=== PATIENT | female | born 1965 | race American Indian/Alaskan Native ===

== ENCOUNTER 2019-01-02 20:42 | Emergency (ER) | payer MEDICAID ==
--- NOTE | 2019-01-02 20:58 | Emergency Department Report ---
Blank Doc - Documentation Documentation: This is a 53-year-old female that presents with left axilla abscess. This initial assessment/diagnostic orders/clinical plan/treatment(s) is/are subject to change based on patient's health status, clinical progression and re- assessment by fellow clinical providers in the ED. Further treatment and workup at subsequent clinical providers discretion. Patient/guardians urged not to elope from the ED as their condition may be serious if not clinically assessed and managed. Initial orders include: 1- Patient sent to [facility] for further evaluation and treatment
[2019-01-02 21:52] LABS: Basophils % (Auto) 0.6 % (0.0-1.8); Eosinophils % (Auto) 0.4 % (0.0-4.3); Hematocrit 38.1 % (30.3-42.9); Hemoglobin 12.8 gm/dl (10.1-14.3); Lymphocytes # (Auto) 2.1 K/mm3 (1.2-5.4); Lymphocytes % (Auto) 48.4 % (13.4-35.0); Mean Corpuscular HGB Conc 34 % (30-34); Mean Corpuscular Volume 87 fl (79-97); Monocytes # (Auto) 0.5 K/mm3 (0.0-0.8); Monocytes % (Auto) 10.7 % (0.0-7.3); Platelet Count 315 K/mm3 (140-440); Red Blood Count 4.36 M/mm3 (3.65-5.03); Red Cell Distribution Width 12.6 % (13.2-15.2)
[2019-01-02 22:07] LABS: Alanine Aminotransferase 23 units/L (7-56); Albumin 3.4 g/dL (3.9-5); BUN/Creatinine Ratio 17; Blood Urea Nitrogen 10 mg/dL (7-17); Calcium 9.4 mg/dL (8.4-10.2); Hemolysis Index 7
[2019-01-02] MEDS ORDERED: CLEOCIN 600 MG/50 mL 600 MG/50 ML BAG IV ONE (22:58)
[2019-01-02] MEDS ORDERED: DILAUDID IV ONE (22:58)
[2019-01-02] MEDS ORDERED: ZOFRAN IV ONE (22:59)
[2019-01-02] MEDS ORDERED: HumuLIN R IV ONE (22:59)
[2019-01-02] MEDS ORDERED: NACL 0.9% 1000 ML 1,000 ML IV ONE (22:59)
[2019-01-02] MEDS ORDERED: XYLOCAINE 2%/EPI 1:100,000 INFILTRATI ONE (23:00)
--- NOTE | 2019-01-02 23:02 | Emergency Department Report ---
- General Chief complaint: Skin/Abscess/Foreign Body Stated complaint: BOIL UNDER LEFT ARM/PAINFUL Time Seen by Provider: 01/02/19 20:58 Source: patient Mode of arrival: Ambulatory Limitations: No Limitations - History of Present Illness Initial comments: 53-year-old female with a past medical history diabetes currently on insulin and pills and hypertension presents to the hospital with complaints of multiple boils in her left axilla 4 days. Positive drainage. No fevers. Tetanus up-to-date within 10 years. No previous history of abscess. Compliant with medications but did not have evening diabetes medication. Today patient started having mid abdominal pain with nausea but no pain at this time. Mild dysuria reported. - Related Data Previous Rx's Medication Instructions Recorded Last Taken Type HYDROcodone/APAP 5-325 [[place] 1 each PO Q6HR PRN #15 tablet 01/03/19 Unknown Rx 5/325] Ibuprofen [Motrin] 800 mg PO Q8HR PRN #30 tablet 01/03/19 Unknown Rx Sulfamethoxazole/Trimethoprim 1 each PO BID #20 tablet 01/03/19 Unknown Rx [Bactrim DS TAB] Allergies Allergy/AdvReac Type Severity Reaction Status Date / Time No Known Allergies Allergy Verified 01/02/19 20:55 Abscess Boil HPI - HPI Chief Complaint: Skin/Abscess/Foreign Body Stated Complaint: BOIL UNDER LEFT ARM/PAINFUL Time Seen by Provider: 01/02/19 20:58 Home Medications: Previous Rx's Medication Instructions Recorded Last Taken Type HYDROcodone/APAP 5-325 [[place] 1 each PO Q6HR PRN #15 tablet 01/03/19 Unknown Rx 5/325] Ibuprofen [Motrin] 800 mg PO Q8HR PRN #30 tablet 01/03/19 Unknown Rx Sulfamethoxazole/Trimethoprim 1 each PO BID #20 tablet 01/03/19 Unknown Rx [Bactrim DS TAB] Allergies/Adverse Reactions: Allergies Allergy/AdvReac Type Severity Reaction Status Date / Time No Known Allergies Allergy Verified 01/02/19 20:55 ED Review of Systems ROS: Stated complaint: BOIL UNDER LEFT ARM/PAINFUL Other details as noted in HPI Comment: All other systems reviewed and negative ED Past Medical Hx - Past Medical History Previous Medical History?: Yes Hx Hypertension: Yes Hx Diabetes: Yes - Surgical History Past Surgical History?: Yes Additional Surgical History: x1 - Social History Smoking Status: Current Every Day Smoker Substance Use Type: None - Medications Home Medications: Home Medications Medication Instructions Recorded Confirmed Last Taken Type HYDROcodone/APAP 5-325 [[place] 1 each PO Q6HR PRN #15 tablet 01/03/19 Unknown Rx 5/325] Ibuprofen [Motrin] 800 mg PO Q8HR PRN #30 tablet 01/03/19 Unknown Rx Sulfamethoxazole/Trimethoprim 1 each PO BID #20 tablet 01/03/19 Unknown Rx [Bactrim DS TAB] ED Physical Exam - General Limitations: No Limitations - Other Other exam information: General: No acute distress Head: Atraumatic normocephalic Eyes: Normal appearance, pupils equal reactive to light, extraocular movements intact ENT: Normal oropharynx Neck: Normal appearance, no C-spine tenderness, no meningismus Chest: Clear to auscultation bilaterally, no wheezes, rales, or crackles Cardiovascular: Regular rate and rhythm Abdomen: Soft, nondistended, suprapubic tenderness, no rebound or guarding, normal bowel sounds Back: Normal inspection, nontender Extremity: Normal inspection, no deformity, full range of motion Neuro: Alert and oriented 3, speech clear, no gross motor or sensory deficit Psychiatric: Normal affect Skin: Left axilla abscess 3. Patient has a superior 3 cm skin ulceration with induration and tenderness. No fluctuance. There are 2 very small indurated lesions which likely represent early abscesses. Patient has 1 larger 1 cm fluctuant abscess that requires incision and drainage. ED Course Vital Signs 01/02/19 01/02/19 01/02/19 20:58 21:38 21:42 Temperature 97.7 F 97.3 F L Pulse Rate 91 H 77 Respiratory 18 16 Rate Blood Pressure 78/54 119/65 Blood Pressure 116/72 [Right] O2 Sat by Pulse 96 98 Oximetry 01/02/19 01/02/19 01/02/19 22:35 23:29 23:45 Temperature 98.4 F Pulse Rate 76 Respiratory 24 16 16 Rate Blood Pressure Blood Pressure 133/80 [Right] O2 Sat by Pulse 97 Oximetry - I & D Left Arm Type of Procedure: Simple Site: left axilla Blade Size: 11 I & D Procedure: betadine prep, sterile drapes applied, sterile dressing applied, gauze wick placed Progress: Wound culture sent ED Medical Decision Making - Lab Data Result diagrams: 01/02/19 21:45 01/02/19 21:45 Lab Results 01/02/19 01/02/19 01/02/19 Range/Units 21:45 21:45 23:27 WBC 4.4 L (4.5-11.0) K/mm3 RBC 4.36 (3.65-5.03) M/mm3 Hgb 12.8 (10.1-14.3) gm/dl Hct 38.1 (30.3-42.9) % MCV 87 (79-97) fl MCH 29 (28-32) pg MCHC 34 (30-34) % RDW 12.6 L (13.2-15.2) % Plt Count 315 (140-440) K/mm3 Lymph % (Auto) 48.4 H (13.4-35.0) % Anderson % (Auto) 10.7 H (0.0-7.3) % Eos % (Auto) 0.4 (0.0-4.3) % Baso % (Auto) 0.6 (0.0-1.8) % Lymph # 2.1 (1.2-5.4) K/mm3 Anderson # 0.5 (0.0-0.8) K/mm3 Eos # 0.0 (0.0-0.4) K/mm3 Baso # 0.0 (0.0-0.1) K/mm3 Seg Neutrophils % 39.9 L (40.0-70.0) % Seg Neutrophils # 1.7 L (1.8-7.7) K/mm3 Sodium 138 (137-145) mmol/L Potassium 3.3 L (3.6-5.0) mmol/L Chloride 101.0 (98-107) mmol/L Carbon Dioxide 25 (22-30) mmol/L Anion Gap 15 mmol/L BUN 10 (7-17) mg/dL Creatinine 0.6 L (0.7-1.2) mg/dL Estimated GFR > 60 ml/min BUN/Creatinine Ratio 17 % Glucose 320 H (65-100) mg/dL POC Glucose 332 H (70-105) Calcium 9.4 (8.4-10.2) mg/dL Total Bilirubin 0.20 (0.1-1.2) mg/dL AST 26 (5-40) units/L ALT 23 (7-56) units/L Alkaline Phosphatase 76 (35-129) units/L Total Protein 6.9 (6.3-8.2) g/dL Albumin 3.4 L (3.9-5) g/dL Albumin/Globulin Ratio 1.0 % Lipase 96 H (13-60) units/L - Medical Decision Making Patient had I&D of abscess. Treated with clindamycin. Tetanus up to date. Pain medicine given prior to I&D. Patient has mild hypokalemia and by mouth potassium Glucose elevated because patient did not take her evening meds dose. Improved with insulin and IV fluids - Differential Diagnosis abscess, DKA, hyperglycemia, hidradenitis Critical Care Time: No Critical care attestation.: If time is entered above; I have spent that time in minutes in the direct care of this critically ill patient, excluding procedure time. ED Disposition Clinical Impression: Abscess of left axilla, Diabetes mellitus with hyperglycemia Disposition: TO HOME OR SELFCARE Is pt being admited?: No Does the pt Need Aspirin: No Condition: Stable Instructions: Diabetes Mellitus Type 2 in Adults (ED), Abscess (ED) Additional Instructions: Take the medications as prescribed. Follow-up with your doctor or with a doctor/clinic provided. Return is symptoms worsen as indicated by the discharge instructions. You may return here in 2 days for packing removal. Prescriptions: Sulfamethoxazole/Trimethoprim [Bactrim DS TAB] 1 each PO BID #20 tablet Ibuprofen [Motrin] 800 mg PO Q8HR PRN #30 tablet PRN Reason: Pain, Moderate (4-6) HYDROcodone/APAP 5-325 [[place] 5/325] 1 each PO Q6HR PRN #15 tablet PRN Reason: Pain Referrals: [facility] [Primary Care Provider] - 2-3 Days [facility] MD [Staff Physician] - 2-3 Days
[2019-01-02] MEDS ORDERED: TORADOL IV ONE (23:43)
[2019-01-02] MEDS ORDERED: TORADOL ONE (23:46)
[2019-01-03] MEDS ORDERED: K-DUR PO ONE (01:01)
[2019-01-03] MEDS ORDERED: ZOFRAN IV ONE (01:02)
[2019-01-03 02:02] VITALS: BP 129/77
== END 2019-01-03 01:35 | disposition home or self-care (01) ==
LOC: ED 20:42
DX: L02.412 Cutaneous abscess of left axilla (principal); E11.65 Type 2 diabetes mellitus with hyperglycemia; I10 Essential (primary) hypertension; F17.200 Nicotine dependence, unspecified, uncomplicated; Z79.1 Long term (current) use of non-steroidal anti-inflammatories (NSAID)
CPT/HCPCS: 10060; 36415; 80053; 82962; 83690; 85025; 87116; 87186; 96365; 96375; 96376; 99284; J1170; J1885; J2405; J7030; J1815

== ENCOUNTER 2019-09-06 17:47 | Emergency (ER) | payer MEDICAID ==
[2019-09-06] MEDS ORDERED: FAMOTIDINE 20 MG/2 ML INJ IV ONE (18:25)
[2019-09-06] MEDS ORDERED: SODIUM CHLORIDE 0.9% 1000 ML 1,000 ML IV ONE (18:25)
[2019-09-06] MEDS ORDERED: INSULIN REGULAR, HUMAN 100 UNITS/1 ML IV ONE (18:25)
[2019-09-06] MEDS ORDERED: KETOROLAC 30 MG/1 ML INJ IV ONE (18:25)
[2019-09-06] MEDS ORDERED: ONDANSETRON 4 MG/2 ML INJ IV ONE (18:25)
--- NOTE | 2019-09-06 18:28 | Emergency Department Report ---
ED Abdominal Pain HPI - General Chief Complaint: Abdominal Pain Stated Complaint: BODY ACHES/HYPERGLYCEMIA Time Seen by Provider: 09/06/19 18:09 Source: patient, EMS Mode of arrival: Stretcher Limitations: No Limitations - History of Present Illness Initial Comments: 54-year-old female the past medical history of diabetes on insulin and metformin, hypertension, schizophrenia, previous delivery and ectopic surgery x2 presents to the hospital complains of 2 weeks of constant generalized abdominal pain with nausea, vomiting, and diarrhea. Pain is worse today and described feeling like a 10/10 cutting pain in her abdomen. Worse in palpation. Patient had 2 episodes of vomiting today and 3 loose stools. She denies fever, hematochezia, hematemesis, melena, sick contacts, recent travel, or recent antibiotic use. She also denies a history of gastroparesis. Patient has been noncompliant with her insulin x2 days because she has not been eating much EMS report glucose of 341 feet. Patient complains of some shortness of breath but denies cough. - Related Data Previous Rx's Medication Instructions Recorded Last Taken Type HYDROcodone/APAP 5-325 [[place] 1 each PO Q6HR PRN #15 tablet 01/03/19 Unknown Rx 5/325] Ibuprofen [Motrin] 800 mg PO Q8HR PRN #30 tablet 01/03/19 Unknown Rx Sulfamethoxazole/Trimethoprim 1 each PO BID #20 tablet 01/03/19 Unknown Rx [Bactrim DS TAB] Ondansetron [Zofran Odt] 4 mg PO Q8HR PRN #20 tab.rapdis 09/06/19 Unknown Rx traMADoL [Ultram 50 MG tab] 50 mg PO Q4HR PRN #10 tablet 09/06/19 Unknown Rx Allergies Allergy/AdvReac Type Severity Reaction Status Date / Time codeine Allergy Vomiting Verified 09/06/19 17:55 morphine Allergy Vomiting Verified 09/06/19 17:55 ED Review of Systems ROS: Stated complaint: BODY ACHES/HYPERGLYCEMIA Other details as noted in HPI Comment: All other systems reviewed and negative ED Past Medical Hx - Past Medical History Previous Medical History?: Yes Hx Hypertension: Yes Hx Diabetes: Yes Hx Psychiatric Treatment: Yes (schizophrenia) - Surgical History Past Surgical History?: Yes Additional Surgical History: x1. ectopic x2 - Social History Smoking Status: Current Every Day Smoker Substance Use Type: None - Medications Home Medications: Home Medications Medication Instructions Recorded Confirmed Last Taken Type HYDROcodone/APAP 5-325 [[place] 1 each PO Q6HR PRN #15 tablet 01/03/19 Unknown Rx 5/325] Ibuprofen [Motrin] 800 mg PO Q8HR PRN #30 tablet 01/03/19 Unknown Rx Sulfamethoxazole/Trimethoprim 1 each PO BID #20 tablet 01/03/19 Unknown Rx [Bactrim DS TAB] Ondansetron [Zofran Odt] 4 mg PO Q8HR PRN #20 tab.rapdis 09/06/19 Unknown Rx traMADoL [Ultram 50 MG tab] 50 mg PO Q4HR PRN #10 tablet 09/06/19 Unknown Rx ED Physical Exam - General Limitations: No Limitations - Other Other exam information: General: No acute distress Head: Atraumatic Eyes: normal appearance ENT: Moist mucous membranes Neck: Normal appearance, no midline tenderness Chest: Clear to auscultation bilaterally CV: Regular rate and rhythm Abdomen: Soft, normal bowel sounds, mild generalized abdominal tenderness nondistended, no rebound or guarding Back: Normal inspection Extremity: Normal inspection, full range of motion Neuro: Alert O x 3, no facial asymmetry, speech clear, no gross motor sensory deficit Psych: Appropriate behavior Skin: No rash ED Course Vital Signs 09/06/19 09/06/19 09/06/19 17:54 18:30 19:28 Temperature 98.7 F 98.5 F Pulse Rate 87 85 72 Respiratory 18 16 18 Rate Blood Pressure 124/71 Blood Pressure 108/65 97/77 [Left] O2 Sat by Pulse 97 98 100 Oximetry ED Medical Decision Making - Lab Data Result diagrams: 09/06/19 18:24 09/06/19 18:24 - Radiology Data Radiology results: report reviewed CT ABDOMEN AND PELVIS WITH CONTRAST INDICATION / CLINICAL INFORMATION: Nausea, vomiting, diarrhea, generalized abdominal pain. TECHNIQUE: Axial CT images were obtained through the abdomen and pelvis after 100 mL Omnipaque [address] scans at this location are performed using CT dose reduction for ALARA by means of automated exposure control. COMPARISON: None available. FINDINGS: LOWER CHEST: No significant abnormality. LIVER: No significant abnormality. BILIARY SYSTEM: Calcified gallstones are present. No additional evidence of acute cholecystitis. PANCREAS: No significant abnormality. SPLEEN: No significant abnormality. ADRENALS: No significant abnormality. KIDNEYS and URETERS: No significant abnormality. STOMACH / BOWEL: No acute inflammatory changes of the stomach or small intestine. No evidence of intestinal obstruction. The appendix is normal. Scattered colonic diverticula. No evidence of diverticulitis. PERITONEUM: No free fluid. No free air. No fluid collection. LYMPH NODES: No adenopathy. VASCULAR STRUCTURES: No significant abnormality. URINARY BLADDER: No significant abnormality. REPRODUCTIVE ORGANS: No significant abnormality. ADDITIONAL FINDINGS: None. SKELETAL SYSTEM: Mild to moderate degenerative changes of the lumbar spine. No acute skeletal abnormality. IMPRESSION: 1. No acute finding. 2. Cholelithiasis without evidence of acute cholecystitis. 3. Mild colonic diverticulosis. CHEST 1 VIEW INDICATION / CLINICAL INFORMATION: Short of breath. COMPARISON: None available. FINDINGS: SUPPORT DEVICES: None. HEART / MEDIASTINUM: No significant abnormality. LUNGS / PLEURA: No significant pulmonary or pleural abnormality. No pneumothorax. IMPRESSION: No acute finding. - Medical Decision Making Patient is feeling better after ED treatment normal saline, Zofran, and Toradol. She wanted to leave the department prior to CT results. I convinced her to stay. She is feeling better without vomiting will be discharged with meds. - Differential Diagnosis Gastroparesis, gastroenteritis, pancreatitis, cholecystitis Critical Care Time: No Critical care attestation.: If time is entered above; I have spent that time in minutes in the direct care of this critically ill patient, excluding procedure time. ED Disposition Clinical Impression: Gastroenteritis, Gallstones, Diverticulosis, Diabetes Disposition: DC-01 TO HOME OR SELFCARE Is pt being admited?: No Does the pt Need Aspirin: No Condition: Stable Instructions: Biliary Colic (ED), Diverticulosis (ED), Diabetes Mellitus Type 2 in Adults (ED), Gastroenteritis (ED) Additional Instructions: Take the medication as prescribed. Follow-up with your doctor or doctor/clinic provided. Return if symptoms worsen as indicated by your discharge instructions. Prescriptions: traMADoL [Ultram 50 MG tab] 50 mg PO Q4HR PRN #10 tablet PRN Reason: Pain Ondansetron [Zofran Odt] 4 mg PO Q8HR PRN #20 tab.rapdis PRN Reason: Nausea And Vomiting Referrals: [facility] [Provider Group] - 3-5 Days Time of Disposition: 20:10
[2019-09-06 18:44] LABS: Basophils % (Auto) 0.5 % (0.0-1.8); Eosinophils % (Auto) 0.7 % (0.0-4.3); Hematocrit 41.2 % (30.3-42.9); Hemoglobin 13.7 gm/dl (10.1-14.3); Lymphocytes # (Auto) 2.2 K/mm3 (1.2-5.4); Lymphocytes % (Auto) 49.9 % (13.4-35.0); Mean Corpuscular HGB Conc 33 % (30-34); Mean Corpuscular Volume 92 fl (79-97); Monocytes # (Auto) 0.3 K/mm3 (0.0-0.8); Monocytes % (Auto) 6.8 % (0.0-7.3); Platelet Count 198 K/mm3 (140-440); Red Blood Count 4.49 M/mm3 (3.65-5.03); Red Cell Distribution Width 12.6 % (13.2-15.2)
[2019-09-06 18:45] LABS: Bilirubin,Urine NEG (Negative); Blood,Urine NEG (Negative); Color,Urine Straw (Yellow); Protein,Urine <15 mg/dL mg/dL (Negative); Urobilinogen,Urine < 2.0 mg/dL (<2.0); WBC,Urine < 1.0 /HPF (0.0-6.0)
[2019-09-06 19:03] LABS: Alanine Aminotransferase 13 units/L (7-56); Albumin 4.3 g/dL (3.9-5); BUN/Creatinine Ratio 19; Blood Urea Nitrogen 13 mg/dL (7-17); Hemolysis Index 23
--- NOTE | 2019-09-06 19:41 | XRay Report ---
CHEST 1 VIEW INDICATION / CLINICAL INFORMATION: Short of breath. COMPARISON: None available. FINDINGS: SUPPORT DEVICES: None. HEART / MEDIASTINUM: No significant abnormality. LUNGS / PLEURA: No significant pulmonary or pleural abnormality. No pneumothorax. IMPRESSION: No acute finding. Signer Name: Wagner Fabian MD Signed: 09/06/2019 7:37 PM Workstation Name: [id number]
--- NOTE | 2019-09-06 19:41 | Cat Scan Report ---
CT ABDOMEN AND PELVIS WITH CONTRAST INDICATION / CLINICAL INFORMATION: Nausea, vomiting, diarrhea, generalized abdominal pain. TECHNIQUE: Axial CT images were obtained through the abdomen and pelvis after 100 mL Omnipaque [address] scans at this location are performed using CT dose reduction for ALARA by means of automated exposure control. COMPARISON: None available. FINDINGS: LOWER CHEST: No significant abnormality. LIVER: No significant abnormality. BILIARY SYSTEM: Calcified gallstones are present. No additional evidence of acute cholecystitis. PANCREAS: No significant abnormality. SPLEEN: No significant abnormality. ADRENALS: No significant abnormality. KIDNEYS and URETERS: No significant abnormality. STOMACH / BOWEL: No acute inflammatory changes of the stomach or small intestine. No evidence of inte stinal obstruction. The appendix is normal. Scattered colonic diverticula. No evidence of diverticuli tis. PERITONEUM: No free fluid. No free air. No fluid collection. LYMPH NODES: No adenopathy. VASCULAR STRUCTURES: No significant abnormality. URINARY BLADDER: No significant abnormality. REPRODUCTIVE ORGANS: No significant abnormality. ADDITIONAL FINDINGS: None. SKELETAL SYSTEM: Mild to moderate degenerative changes of the lumbar spine. No acute skeletal abnorma lity. IMPRESSION: 1. No acute finding. 2. Cholelithiasis without evidence of acute cholecystitis. 3. Mild colonic diverticulosis. Signer Name: Wagner Fabian MD Signed: 09/06/2019 7:36 PM Workstation Name: [id number]
[2019-09-06 20:41] VITALS: BP 106/66
== END 2019-09-06 20:18 | disposition home or self-care (01) ==
LOC: ED 17:47
DX: N20.0 Calculus of kidney (principal); K52.9 Noninfective gastroenteritis and colitis, unspecified; K57.90 Diverticulosis of intestine, part unspecified, without perforation or abscess without bleeding; E11.65 Type 2 diabetes mellitus with hyperglycemia; I10 Essential (primary) hypertension; F17.200 Nicotine dependence, unspecified, uncomplicated; F20.9 Schizophrenia, unspecified; Z79.899 Other long term (current) drug therapy; Z98.890 Other specified postprocedural states; Z88.6 Allergy status to analgesic agent
CPT/HCPCS: 36415; 71045; 74177; 80053; 81001; 82805; 82962; 83690; 85025; 96374; 96375; 99285; J1885; J2405; J7030; Q9967; J1815

== ENCOUNTER 2020-01-12 22:45 | Emergency (ER) | payer MEDICAID ==
[2020-01-13 00:12] VITALS: BP 128/80
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
== END 2020-01-13 04:50 | disposition home or self-care (01) ==
LOC: ED 22:45
DX: R51 Headache (principal); G89.29 Other chronic pain; I10 Essential (primary) hypertension; E11.9 Type 2 diabetes mellitus without complications; F25.0 Schizoaffective disorder, bipolar type; F17.200 Nicotine dependence, unspecified, uncomplicated; Z79.899 Other long term (current) drug therapy; Z88.6 Allergy status to analgesic agent
CPT/HCPCS: 99282

== ENCOUNTER 2020-04-16 15:38 | Emergency (ER) | payer MEDICAID ==
[2020-04-16 20:00] VITALS: BP 140/90
== END 2020-04-16 17:00 | disposition left against medical advice (07) ==
LOC: ED 15:38
DX: R73.9 Hyperglycemia, unspecified (principal); Z53.21 Procedure and treatment not carried out due to patient leaving prior to being seen by health care provider
CPT/HCPCS: 82962

== ENCOUNTER 2020-05-12 17:37 | Emergency (ER) | payer MEDICAID ==
[2020-05-12 18:45] VITALS: BP 115/79
== END 2020-05-12 20:29 | disposition left against medical advice (07) ==
LOC: ED 17:37
DX: M79.672 Pain in left foot (principal); Z53.21 Procedure and treatment not carried out due to patient leaving prior to being seen by health care provider

== ENCOUNTER 2020-05-14 12:20 | Emergency (ER) | payer MEDICAID ==
[2020-05-14 12:32] VITALS: BP 117/71
[2020-05-14 13:09] LABS: Eosinophils # (Auto) 0.1 K/mm3 (0.0-0.4); Eosinophils % (Auto) 1.3 % (0.0-4.3); Hematocrit 41.2 % (30.3-42.9); Hemoglobin 14.2 gm/dl (10.1-14.3); Lymphocytes # (Auto) 1.6 K/mm3 (1.2-5.4); Lymphocytes % (Auto) 35.9 % (13.4-35.0); Mean Corpuscular HGB Conc 34 % (30-34); Mean Corpuscular Volume 89 fl (79-97); Monocytes # (Auto) 0.4 K/mm3 (0.0-0.8); Monocytes % (Auto) 8.2 % (0.0-7.3); Platelet Count 290 K/mm3 (140-440); Red Blood Count 4.62 M/mm3 (3.65-5.03); Red Cell Distribution Width 12.2 % (13.2-15.2)
[2020-05-14 13:10] LABS: Basophils % (Auto) 0.2 % (0.0-1.8)
[2020-05-14 13:19] LABS: Blood Urea Nitrogen 10 mg/dL (7-17); Calcium 9.7 mg/dL (8.4-10.2); Hemolysis Index 5
[2020-05-14 13:21] LABS: BUN/Creatinine Ratio 17
== END 2020-05-14 12:45 | disposition left against medical advice (07) ==
LOC: ED 12:20
DX: Z53.21 Procedure and treatment not carried out due to patient leaving prior to being seen by health care provider (principal)
CPT/HCPCS: 36415; 80048; 80320; 85025; G0480

== ENCOUNTER 2020-05-14 18:16 | Emergency (ER) | payer MEDICAID ==
[2020-05-14 20:29] VITALS: BP 114/88
[2020-05-14] MEDS ORDERED: ACETAMINOPHEN 500 MG TAB PO ONE (23:09)
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
== END 2020-05-15 00:04 | disposition home or self-care (01) ==
LOC: ED 18:16
DX: S86.912A Strain of unspecified muscle(s) and tendon(s) at lower leg level, left leg, initial encounter (principal); L24.9 Irritant contact dermatitis, unspecified cause; I10 Essential (primary) hypertension; E11.9 Type 2 diabetes mellitus without complications; F20.9 Schizophrenia, unspecified; F17.200 Nicotine dependence, unspecified, uncomplicated; Z98.890 Other specified postprocedural states; Z79.1 Long term (current) use of non-steroidal anti-inflammatories (NSAID); Z79.899 Other long term (current) drug therapy; Z88.8 Allergy status to other drugs, medicaments and biological substances; X58.XXXA Exposure to other specified factors, initial encounter; Y93.89 Activity, other specified; Y92.89 Other specified places as the place of occurrence of the external cause; Y99.8 Other external cause status
CPT/HCPCS: 99282

== ENCOUNTER 2020-07-19 18:08 | Emergency (ER) | payer MEDICAID ==
[2020-07-19] MEDS ORDERED: PENICILLIN G BENZATHINE 1.2 MILLION UNIT/2 ML INJ IM ONE (20:03)
--- NOTE | 2020-07-19 20:07 | Emergency Department Report ---
ED General Adult HPI - General Chief complaint: Urogenital-Female Stated complaint: STD Time Seen by Provider: 07/19/20 19:27 Source: patient, EMS Mode of arrival: Ambulatory Limitations: No Limitations - History of Present Illness Initial comments: Patient is a 55-year-old female presents emergency room with complaints of needing treatment for syphilis. She reports that she was at [facility] last week and admitted for her diabetes and states that she tested positive for syphilis. She reports that she left AGAINST MEDICAL ADVICE and reports that she was not treated for the syphilis. She states that she has a rash to her palms of her hands and the soles of her feet. She denies any other symptoms. She has an allergy to codeine and morphine. She states that she is post to follow-up with a [facility] in a week. - Related Data Previous Rx's Medication Instructions Recorded Last Taken Type HYDROcodone/APAP 5-325 [[place] 1 each PO Q6HR PRN #15 tablet 01/03/19 Unknown Rx 5/325] Sulfamethoxazole/Trimethoprim 1 each PO BID #20 tablet 01/03/19 Unknown Rx [Bactrim DS TAB] Ondansetron [Zofran Odt] 4 mg PO Q8HR PRN #20 tab.rapdis 09/06/19 Unknown Rx traMADoL [Ultram 50 MG tab] 50 mg PO Q4HR PRN #10 tablet 09/06/19 Unknown Rx Butalb/Acetamin/Caff 50-325-40 1 tab PO Q6HR PRN #5 tab 01/13/20 Unknown Rx [Fioricet 50-325-40] Ibuprofen [Motrin 800 MG tab] 800 mg PO Q8HR PRN #30 tablet 05/14/20 Unknown Rx Triamcinolone Acetonide 1 applic TP BID #1 tube 05/14/20 Unknown Rx [Triamcinolone Acetonide Oint 0.5%] Allergies Allergy/AdvReac Type Severity Reaction Status Date / Time codeine Allergy Vomiting Verified 07/19/20 18:09 morphine Allergy Vomiting Verified 07/19/20 18:09 ED Review of Systems ROS: Stated complaint: STD Other details as noted in HPI Comment: All other systems reviewed and negative ED Past Medical Hx - Past Medical History Hx Hypertension: Yes Hx Diabetes: Yes Hx Psychiatric Treatment: Yes (schizophrenia) - Surgical History Additional Surgical History: x1. ectopic x2 - Social History Smoking Status: Never Smoker Substance Use Type: None - Medications Home Medications: Home Medications Medication Instructions Recorded Confirmed Last Taken Type HYDROcodone/APAP 5-325 [[place] 1 each PO Q6HR PRN #15 tablet 01/03/19 Unknown Rx 5/325] Sulfamethoxazole/Trimethoprim 1 each PO BID #20 tablet 01/03/19 Unknown Rx [Bactrim DS TAB] Ondansetron [Zofran Odt] 4 mg PO Q8HR PRN #20 tab.rapdis 09/06/19 Unknown Rx traMADoL [Ultram 50 MG tab] 50 mg PO Q4HR PRN #10 tablet 09/06/19 Unknown Rx Butalb/Acetamin/Caff 50-325-40 1 tab PO Q6HR PRN #5 tab 01/13/20 Unknown Rx [Fioricet 50-325-40] Ibuprofen [Motrin 800 MG tab] 800 mg PO Q8HR PRN #30 tablet 05/14/20 Unknown Rx Triamcinolone Acetonide 1 applic TP BID #1 tube 05/14/20 Unknown Rx [Triamcinolone Acetonide Oint 0.5%] ED Physical Exam - General Limitations: No Limitations General appearance: alert, in no apparent distress - Head Head exam: Present: atraumatic, normocephalic - ENT ENT exam: Present: mucous membranes moist - Respiratory Respiratory exam: Absent: respiratory distress, accessory muscle use - Neurological Exam Neurological exam: Present: alert, oriented X3 - Psychiatric Psychiatric exam: Present: normal affect, normal mood - Skin Skin exam: Present: warm, dry, other (erythematous/brownish macules present to the palms of the hands and soles of the feet) ED Course Vital Signs 07/19/20 07/19/20 07/19/20 18:11 20:25 21:10 Temperature 98.5 F 98.8 F Pulse Rate 114 H 116 H 104 H Respiratory 18 18 18 Rate Blood Pressure 116/72 Blood Pressure 129/73 142/79 [Right] O2 Sat by Pulse 96 98 95 Oximetry ED Medical Decision Making - Lab Data Vital Signs 07/19/20 07/19/20 07/19/20 18:11 20:25 21:10 Temperature 98.5 F 98.8 F Pulse Rate 114 H 116 H 104 H Respiratory 18 18 18 Rate Blood Pressure 116/72 Blood Pressure 129/73 142/79 [Right] O2 Sat by Pulse 96 98 95 Oximetry - Medical Decision Making Patient is a 55-year-old female presents emergency room with complaints of needing treatment for syphilis. She reports that she was at [facility] last week and admitted for her diabetes and states that she tested positive for syphilis. She reports that she left AGAINST MEDICAL ADVICE and reports that she was not treated for the syphilis. She states that she has a rash to her palms of her hands and the soles of her feet. She denies any other symptoms. She has an allergy to codeine and morphine. She states that she is post to follow-up with a [facility] in a week. Vitals with tachycardia which improved upon repeat. On exam:erythematous/brownish macules present to the palms of the hands and soles of the feet. The rash present on her palms and soles of her feet do appear most consistent with syphilitic rash. Discussed case with Dr. Chau, ER attending who advised to give patient treatment and have patient follow-up with clinic/health department. advised pt Please follow-up with the health department or the [facility]. It is very important that you follow-up. Please have any partner tested and treated as well. Avoid sexual intercourse. Return to emergency room for any new or worsening symptoms. Critical care attestation.: If time is entered above; I have spent that time in minutes in the direct care of this critically ill patient, excluding procedure time. ED Disposition Clinical Impression: Syphilis Disposition: DC-01 TO HOME OR SELFCARE Is pt being admited?: No Does the pt Need Aspirin: No Condition: Stable Instructions: Syphilis Additional Instructions: Please follow-up with the health department or the [facility]. It is very important that you follow-up. Please have any partner tested and treated as well. Avoid sexual intercourse. Return to emergency room for any new or worsening symptoms. Referrals: [facility] [Outside] - 3-5 Days [facility] [Outside] - 3-5 Days Time of Disposition: 20:06 Print Language: ANGOLAN
[2020-07-19 21:19] VITALS: BP 142/79
== END 2020-07-19 22:30 | disposition home or self-care (01) ==
LOC: ED 18:08
DX: A53.9 Syphilis, unspecified (principal); I10 Essential (primary) hypertension; E11.9 Type 2 diabetes mellitus without complications; F20.9 Schizophrenia, unspecified; Z98.890 Other specified postprocedural states; Z79.1 Long term (current) use of non-steroidal anti-inflammatories (NSAID); Z79.899 Other long term (current) drug therapy; Z88.8 Allergy status to other drugs, medicaments and biological substances
CPT/HCPCS: 96372; 99283; J0561

== ENCOUNTER 2021-06-03 19:29 | Emergency (ER) | payer MEDICAID, SELFPAY ==
--- NOTE | 2021-06-03 21:39 | XRay Report ---
CHEST 2 VIEWS INDICATION / CLINICAL INFORMATION: cough fever. COMPARISON: 05/10/2021 FINDINGS: SUPPORT DEVICES: None. HEART / MEDIASTINUM: No significant abnormality. LUNGS / PLEURA: No significant pulmonary or pleural abnormality. No pneumothorax. ADDITIONAL FINDINGS: No significant additional findings. IMPRESSION: 1. No acute findings. Signer Name: Ruiz Monge DO Signed: 06/03/2021 9:34 PM Workstation Name: [id number]
[2021-06-04 04:09] VITALS: BP 132/87
--- NOTE | 2021-06-04 05:22 | Emergency Department Report ---
- General Chief Complaint: Nausea/Vomiting/Diarrhea Stated Complaint: BODY ACHES Time Seen by Provider: 06/04/21 04:24 Source: patient Mode of arrival: Ambulatory Limitations: No Limitations - History of Present Illness Initial Comments: 52-year-old female presents emerged department complaining of cough congestion coryza with mucus production at the been very close contact with multiple people with COVID-19 with questionable protection. She reports fever sensation as well as some nausea and occasional vomiting episodes the past day or so. Symptoms have been present for the last 3 days with no signs of improvement. She also has been having some vague respiratory issues she feels may be wheezing. She reports no chest pain reports no hemoptysis no hematemesis hematochezia. MD Complaint: cough, rhinorrhea, nasal congestion - Related Data Previous Rx's Medication Instructions Recorded Last Taken Type HYDROcodone/APAP 5-325 [[place] 1 each PO Q6HR PRN #15 tablet 01/03/19 Unknown Rx 5/325] Sulfamethoxazole/Trimethoprim 1 each PO BID #20 tablet 01/03/19 Unknown Rx [Bactrim DS TAB] Ondansetron [Zofran Odt] 4 mg PO Q8HR PRN #20 tab.rapdis 09/06/19 Unknown Rx traMADoL [Ultram 50 MG tab] 50 mg PO Q4HR PRN #10 tablet 09/06/19 Unknown Rx Triamcinolone Acetonide 1 applic TP BID #1 tube 05/14/20 Unknown Rx [Triamcinolone Acetonide Oint 0.5%] Azithromycin [Zithromax Z-STEPHEN] 250 mg PO DAILY #6 tablet 05/10/21 Unknown Rx Butalb/Acetamin/Caff 50-325-40 1 - 2 tab PO Q6HR PRN #15 tab 05/10/21 Unknown Rx [Fioricet 50-325-40] Cetirizine HCl [Zyrtec 10mg tab] 10 mg PO DAILY #30 tablet 05/10/21 Unknown Rx Ibuprofen [Motrin 800 MG tab] 800 mg PO Q8HR PRN #30 tablet 05/10/21 Unknown Rx Benzonatate [Tessalon Perles] 100 mg PO Q8HR #30 capsule 06/04/21 Unknown Rx Ondansetron [Zofran ODT TAB] 4 mg PO Q6HR PRN #20 tab.rapdis 06/04/21 Unknown Rx Allergies Allergy/AdvReac Type Severity Reaction Status Date / Time codeine Allergy Vomiting Verified 07/19/20 18:09 morphine Allergy Vomiting Verified 07/19/20 18:09 benztropine [From Cogentin] AdvReac Hives Verified 05/09/21 22:52 tramadol AdvReac Itching Verified 05/09/21 22:52 ED Review of Systems ROS: Stated complaint: BODY ACHES Other details as noted in HPI Comment: All other systems reviewed and negative ED Past Medical Hx - Past Medical History Hx Hypertension: Yes Hx Diabetes: Yes Hx Psychiatric Treatment: Yes (schizophrenia) Additional medical history: HIV - Surgical History Additional Surgical History: x1. ectopic x2 - Social History Smoking Status: Never Smoker Substance Use Type: None - Medications Home Medications: Home Medications Medication Instructions Recorded Confirmed Last Taken Type HYDROcodone/APAP 5-325 [[place] 1 each PO Q6HR PRN #15 tablet 01/03/19 Unknown Rx 5/325] Sulfamethoxazole/Trimethoprim 1 each PO BID #20 tablet 01/03/19 Unknown Rx [Bactrim DS TAB] Ondansetron [Zofran Odt] 4 mg PO Q8HR PRN #20 tab.rapdis 09/06/19 Unknown Rx traMADoL [Ultram 50 MG tab] 50 mg PO Q4HR PRN #10 tablet 09/06/19 Unknown Rx Triamcinolone Acetonide 1 applic TP BID #1 tube 05/14/20 Unknown Rx [Triamcinolone Acetonide Oint 0.5%] Azithromycin [Zithromax Z-STEPHEN] 250 mg PO DAILY #6 tablet 05/10/21 Unknown Rx Butalb/Acetamin/Caff 50-325-40 1 - 2 tab PO Q6HR PRN #15 tab 05/10/21 Unknown Rx [Fioricet 50-325-40] Cetirizine HCl [Zyrtec 10mg tab] 10 mg PO DAILY #30 tablet 05/10/21 Unknown Rx Ibuprofen [Motrin 800 MG tab] 800 mg PO Q8HR PRN #30 tablet 05/10/21 Unknown Rx Benzonatate [Tessalon Perles] 100 mg PO Q8HR #30 capsule 06/04/21 Unknown Rx Ondansetron [Zofran ODT TAB] 4 mg PO Q6HR PRN #20 tab.rapdis 06/04/21 Unknown Rx ED Physical Exam - General Limitations: No Limitations - Eye Eye exam: Present: normal appearance, PERRL Pupils: Present: normal accommodation - ENT ENT exam: Present: normal exam, other (Some nasal congestion is noted. Clear drainage. Airway patent tongue uvula midline) - Neck Neck exam: Present: normal inspection, full ROM - Respiratory Respiratory exam: Present: normal lung sounds bilaterally - Extremities Exam Extremities exam: Present: normal inspection, full ROM - Back Exam Back exam: Present: normal inspection, full ROM, CVA tenderness (L) - Neurological Exam Neurological exam: Present: alert, altered, CN II-XII intact - Psychiatric Psychiatric exam: Present: normal affect ED Course Vital Signs 06/04/21 04:02 Temperature 98.5 F Pulse Rate 98 H Respiratory 18 Rate Blood Pressure 132/87 [Right] O2 Sat by Pulse 99 Oximetry ED Medical Decision Making - Medical Decision Making This patient presents to the emergency department with fever and lower respiratory symptoms concerning for viral syndrome including flu and COVID-19. Patient has suspicion and is for COVID-19 infection. Differential diagnosis includes other viral causes of lower respiratory symptoms, pneumonia, asthma, bronchitis. Patient is well-appearing with acceptable vitals, lacks comorbidities admission and a reassuring physical examination and is safe to be discharged home nasal swab for COVID testing is recommended. Provide strict return precautions and instructions on self isolation/quarantine and anticipatory guidance. Critical care attestation.: If time is entered above; I have spent that time in minutes in the direct care of this critically ill patient, excluding procedure time. ED Disposition Clinical Impression: URI (upper respiratory infection), Suspected 2019-nCoV infection Disposition: HOME / SELF CARE / HOMELESS Is pt being admited?: No Does the pt Need Aspirin: No Condition: Stable Instructions: Cool Mist Vaporizer, Viral Respiratory Infection, Roky-Dc-Odci, Cough, Adult, Viral Respiratory Infection Prescriptions: Benzonatate [Tessalon Perles] 100 mg PO Q8HR #30 capsule Ondansetron [Zofran ODT TAB] 4 mg PO Q6HR PRN #20 tab.rapdis PRN Reason: Nausea And Vomiting Referrals: [facility] [Provider Group] - 3-5 Days PRIMARY CARE, [Primary Care Provider] - 3-5 Days
== END 2021-06-04 05:50 | disposition home or self-care (01) ==
LOC: ED 19:29
DX: J06.9 Acute upper respiratory infection, unspecified (principal); Z20.822 Contact with and (suspected) exposure to COVID-19; I10 Essential (primary) hypertension; E11.9 Type 2 diabetes mellitus without complications; F20.9 Schizophrenia, unspecified
CPT/HCPCS: 71046; 99282

== ENCOUNTER 2021-10-30 16:35 | Emergency (ER) | payer MEDICAID ==
[2021-10-30 16:48] VITALS: BP 114/70
[2021-10-30 19:03] LABS: Bilirubin,Urine NEG (Negative); Blood,Urine NEG (Negative); Color,Urine Straw (Yellow); Protein,Urine <15 mg/dL mg/dL (Negative); Urobilinogen,Urine < 2.0 mg/dL (<2.0)
[2021-10-30 19:07] LABS: Mucus,Urine FEW /HPF; Renal Epithelial Cells,Urine 1 /LPF
== END 2021-11-01 06:45 | disposition left against medical advice (07) ==
LOC: ED 16:35
DX: R04.0 Epistaxis (principal); Z53.21 Procedure and treatment not carried out due to patient leaving prior to being seen by health care provider
CPT/HCPCS: 81001; 87086

== ENCOUNTER 2022-02-01 15:27 | Emergency (ER) | payer MEDICAID ==
[2022-02-01 15:47] VITALS: BP 130/70
== END 2022-02-02 15:43 | disposition left against medical advice (07) ==
LOC: ED 15:27
DX: R51.9 Headache, unspecified (principal); R10.9 Unspecified abdominal pain; Z53.21 Procedure and treatment not carried out due to patient leaving prior to being seen by health care provider